=== PATIENT | male | born 1980 | race Two or more races ===

== ENCOUNTER 2016-11-30 10:19 | Emergency (ER) | payer OTHER ==
[~2016-11-30] VITALS: Ht 167.6 cm; Wt 81.6 kg
[2016-11-30 10:38] VITALS: BP 138/90
[2016-11-30] MEDS ORDERED: Cephalexin 500mg cap ORAL ONE (11:15)
[2016-11-30] MEDS ORDERED: KEFLEX500 MG ORAL (11:26)
--- NOTE | 2016-11-30 11:31 | Emergency Room Report ---
History of Present Illness General Chief Complaint: Laceration Source: Patient Present Illness HPI Patient presents with complaints of injury to the left middle finger patient was using a table saw when the injury occurred Denies any pain to the wrist as any elbow pain denies any loss of consciousness Pain to the distal finger is 6/10 worse with touch Bleeding was controlled with minimal pressure This occurred approximately 10 in the morning Allergies: Coded Allergies: No Known Allergies (Unverified , 11/30/16) Patient History Past Medical History: see triage record Pertinent Family History: none Reviewed Nursing Documentation: PMH: Agreed, PSxH: Agreed Nursing Documentation-PMH Past Medical History: No Stated History Review of Systems All Other Systems: negative except mentioned in HPI Physical Exam Vital Signs Date Time Temp Pulse Resp B/P (MAP) Pulse Ox O2 Delivery O2 Flow Rate FiO2 11/30/16 10:29 97.9 60 18 140/92 98 Room Air Sp02 EP Interpretation: reviewed, normal General Appearance: well appearing, no apparent distress Head: normocephalic, atraumatic Eyes: bilateral eye PERRL, bilateral eye EOMI ENT: normal pharynx Neck: full range of motion, supple Respiratory: lungs clear Musculoskeletal: normal inspection Neurologic: alert, oriented x3, responsive, coupon collection clerk III-XII nml as tested, motor strength/tone normal Skin: other - Skin avulsion mid finger pad on the palmar aspect left middle finger, is also several areas of other skin avulsion, patient has good flexion distally on the finger and extension no signs of any subungual hematoma Lymphatic: no adenopathy Procedures Splinting Splinting : Consent: Verbal Location: left middle finger Pre-Made Type: metal Splint: finger Pre-Proc Neuro Vasc Exam: normal Post-Proc Neuro Vasc Exam: normal Patient Tolerated: Well Complications: None Laceration/Wound Repair Laceration/Wound Repair : Consent: Verbal Wound Location: upper extremity Wound's Depth, Shape: irregular Wound Length (cm): 1 Wound Explored: contaminated Irrigated w/ Saline (ccs): 200 Betadine Prep?: Yes Anesthesia: Lidocaine w/ Epi Volume Anesthetic (ccs): 4 Wound Debrided: minimal Wound Repaired With: Steri-strips - 4 Number of Sutures: 4 Layer Closure?: No Splint Applied?: Yes Patient Tolerated: Well Complications: None Medical Decision Making Diagnostic Impression: Primary Impression: skin avulsion ER Course Patient's lacerated area has component of skin avulsion Does not appear to be appropriate for suturing at this time Steri-Strips were applied as noted above Patient had a finger splint applied for appropriate healing Placed on oral antibiotics and requires close outpatient followup Last Vital Signs Date Time Temp Pulse Resp B/P (MAP) Pulse Ox O2 Delivery O2 Flow Rate FiO2 11/30/16 10:38 97.9 86 16 138/90 99 Room Air Status: improved Disposition: HOME, SELF-CARE Condition: Improved Scripts Cephalexin* (KEFLEX*) 500 Mg Capsule 500 MG ORAL Q6H, #28 CAP 0 Refills Prov: NOLAN KHALIL D.O. 11/30/16 Referrals: NON PHYSICIAN (PCP) Patient Instructions: Laceration Care, Adult, Deep Skin Avulsion, Nonsutured Laceration Care Additional Instructions: Patient is provided with the discharge instructions notified to follow up with primary doctor in the next 2-3 days otherwise return to the er with any worsening symptoms. Please note that this report is being documented using [employer] technology. This can lead to erroneous entry secondary to incorrect interpretation by the dictating instrument. NOLAN KHALIL D.O. Nov 30, 2016 11:31
[2016-11-30 11:45] VITALS: BP 138/90
== END 2016-11-30 11:46 | disposition home or self-care (01) ==
LOC: EMR 11:16
DX: S61.203A Unspecified open wound of left middle finger without damage to nail, initial encounter (principal); W27.0XXA Contact with workbench tool, initial encounter; Y92.69 Other specified industrial and construction area as the place of occurrence of the external cause; Y99.0 Civilian activity done for income or pay
CPT/HCPCS: 99283